=== PATIENT | female | born 1950 ===

== ENCOUNTER 2021-05-26 06:20 | Observation (INO) ==
--- NOTE | 2021-05-21 12:58 | Anesthesiology Consultation ---
Date of Service May 21, 2021 Assessment & Plan (1) Encounter for pre-operative examination: Chart Review Chart Review: Acceptable Risk for Surgery (pending preop Covid testing results ) and Patient NOT seen in Pre Admission Testing Per nursing assessment 05/21/2021, patient resides in [facility]. No other travel except local. No known Covid positive exposures or Covid related symptoms. Wears mask in public. No known Covid infection in the past 90 days. Pt is fully vaccinated for Covid. Preop Covid testing scheduled 05/24/21= will await results. History Surgery Operation Date: 05/26/21 08:50 Proposed Procedures p Right Total Knee Arthroplasty - Barrera Bray MD Height/Weight Height: 5 ft 1 in Weight: 111.13 kg Allergies Allergy/AdvReac Type Severity Reaction Status Date / Time levofloxacin [From Levaquin] Allergy Mild Rash Verified 05/21/21 11:57 Sulfa (Sulfonamide Allergy Mild Rash Verified 05/21/21 11:57 Antibiotics) amoxicillin [From Augmentin] AdvReac Unknown NAUSEA AND Verified 05/21/21 12:01 VOMITING clavulanic acid AdvReac Unknown NAUSEA AND Verified 05/21/21 12:01 [From Augmentin] VOMITING Medications Home Medications Medication Instructions Recorded Confirmed Last Taken cholecalciferol (vitamin D3) 25 50 mcg PO QAM 10/26/20 05/21/21 Unknown mcg (1,000 unit) tablet (Vitamin D3) fexofenadine 180 mg tablet 180 mg PO DAILY PRN 10/26/20 05/21/21 Unknown ibuprofen 200 mg tablet 400 mg PO Q6H PRN 10/26/20 05/21/21 Unknown pravastatin 40 mg tablet 40 mg PO QAM 10/26/20 05/21/21 Unknown psyllium seed (with dextrose) oral 3.4 g PO QAM 10/26/20 05/21/21 Unknown powder (fiber) aspirin 81 mg tablet,delayed 81 mg PO HS 10/29/20 05/21/21 Unknown release (Adult Aspirin Regimen) amino acids 2 cap PO TID 01/13/21 05/21/21 Unknown cannabidiol 100 mg/mL oral solution 300 mg PO BID 01/13/21 05/21/21 Unknown acetaminophen 650 mg 1,300 mg PO Q8H 05/21/21 05/21/21 Unknown tablet,extended release Past Medical History Medical History Hepatitis A 2000- residing in [place] at the time- no issues at this time or residual issues with liver Hx of cardiac arrhythmia SVT- dx'ed at 16 years of age- controlled with Inderal until 2012- SVT did reoccur- s/p ablation- no recent issues since that time Hx of migraines Hx of squamous cell carcinoma ON FOREHEAD Hyperlipidemia IBS (irritable bowel syndrome) Stable- no recent issues Osteoarthritis Seasonal allergies Urinary urgency Past Family History Family History Grandmother (Maternal) Family history of diabetes mellitus Other No family history of adverse response to anesthesia Past Surgical History Surgical History History of appendectomy History of cardiac radiofrequency ablation FOR SVT 2012 AT [facility] History of dilatation and curettage History of tonsillectomy and adenoidectomy History of tooth extraction Social History Smoking Status: Never smoker Do You Dip or Chew Tobacco: No Hx Alcohol Use: No Hx Substance Use: No substance use type: does not use Substance Use Type Other:: CBD OIL Lab Results Anesthesia Preop Results Results Anesthesia Widget: WBC 7.91 K/uL (4.8-10.8) 04/16/21 Hgb 14.3 g/dL (12.0-16.0) 04/16/21 Hct 43.0 % (37-47) 04/16/21 Plt 374 K/uL (130-400) 04/16/21 Na 137 mmol/L (136-145) 04/16/21 K 4.1 mmol/L (3.5-5.1) 04/16/21 Cl 102 mmol/L (98-107) 04/16/21 CO2 27 mmol/L (21-32) 04/16/21 BUN 17 mg/dl (6-23) 04/16/21 Creat 0.64 mg/dl (0.6-1.2) 04/16/21 Glucose Level 71 mg/dl (70-99(Fasting)) 04/16/21 PT 10.8 Seconds (9.0-12.0) 04/16/21 INR 1.0 (0.9-1.1) 04/16/21 Blood Type O Negative 04/16/21 Antibody Screen NEGATIVE 04/16/21 Testing Electrocardiogram Date: 10/29/20 Findings: + NSR @ (86bpm) Normal EKG per cardio Chest X-Ray Date: 10/29/20 Findings: + NAD 2.5 cm opacity of the medial right lung apex is likely secondary to osteophytic spurring.
--- NOTE | 2021-05-22 09:40 | History and Physical Report ---
CHIEF COMPLAINT: Right knee pain and discomfort. 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 She has a several-year history of increasing right knee pain and disc omfort. She describes it has gotten worse over the past year and a half. She has been treated by Dr Hassan ____ chao in the [place] area. She has been through extensive conservative care including steroi d shots and viscosupplementation, as well as oral medicines. She went through a several-month period of therapy, which helped strengthen her leg a little bit, but did not help much with the pain. She has been using a cane for the past year or so due to the pain. Pain is mostly medial. She would lik e to have her knee fixed. She was scheduled previously, but canceled due to the COVID epidemic. PAST MEDICAL HISTORY: Significant for, 1. SVT, status post ablation in 2012, now in sinus rhythm. 2. Elevated cholesterol. 3. Squamous cell skin cancer. 4. Hepatitis. 5. Obesity with a BMI of 48. PAST SURGICAL HISTORY: Includes, 1. T and A. 2. D and C. 3. Appendectomy. 4. Cardiac ablation. ALLERGIES: SULFA AND LEVAQUIN. CURRENT MEDICATIONS: Include, 1. Rosuvastatin. 2. Ibuprofen. 3. Tylenol. 4. Fiber laxative. 5. Vitamin D. 6. Baby aspirin. 7. CBD oil. 8. Raisa. SOCIAL HISTORY: A 70-year-old female. She is from [place]. She is a retired RN. Rare alcohol in take. Does not smoke. FAMILY HISTORY: Significant for diabetes, heart disease and cancer. REVIEW OF SYSTEMS: Negative for diabetes. No chest pain or shortness of breath. No history of DVT or PE. She did have SVT in the past, but underwent cardioversion and now in sinus rhythm. PHYSICAL EXAMINATION: GENERAL: Shows a pleasant middle-aged female. She is moderately obese. HEENT: Benign. NECK: Supple. No lymphadenopathy. LUNGS: Clear to auscultation. HEART: Has a regular rate and rhythm. ABDOMEN: Soft, nontender, nondistended. EXTREMITIES: Grossly neurovascularly intact except as follows: Examination of the right knee reveal s the patient walks with the use of a cane. She does have moderate to large soft tissue envelope. S he has got varus alignment to her knee. She is tender over the medial joint line. Small knee effusi on. Range of motion is 5-120. No instability. No pain with hip motion. X-RAYS: X-rays from previously reviewed. It shows advanced right knee degenerative joint disease. She has got complete loss of her medial joint space. She has subchondral sclerosis. She has got ost eophytes primarily medially. 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 She has failed conservative measures. I t has gotten to the point where she needs to use a cane to get around. PLAN: We discussed treatment. She would like to proceed with right knee replacement. The risks and benefits of the right total knee replacement were explained to the patient to include, but not limit ed to, DVT, PE, , infection, neurological injury, vascular injury, bleeding problem, pain, limit ed range of motion, stiffness, failure to relieve her symptoms, incomplete relief of symptoms. The p atient understands and desires to proceed. Informed consent was obtained. Job ID: [id number]
[~2021-05-26 06:20] MED LIST: ACETAMINOPHEN 500 MG TAB PO SCH; BUPIVACAINE LIPOSOME/PF 266 MG, BUPIVACAINE/EPINEPHRINE 50 ML, SODIUM CHLORIDE 0.9% 30 ... INFIL SCH; FAMOTIDINE 20 MG TAB PO SCH; GABAPENTIN 300 MG CAP PO SCH; LR 500ML BOLUS, THEN 15ML/HR IV SCH; LR 60ML/HR IV SCH; METOCLOPRAMIDE HCL 10 MG TABLET PO SCH; TRANEXAMIC ACID 1,000 MG **IV Intra-op IV SCH; ceFAZolin 2000MG 2,000 MG/15 ML SYR IV SCH
[2021-05-26] MEDS ORDERED: ROPIVACAINE 0.5% 5 MG/ML 30 ML VIAL ONE (06:36)
[2021-05-26] MEDS ORDERED: BUPIVACAINE 0.5 % 5 MG/1 ML PF 10ML VIAL ONE (06:36)
--- NOTE | 2021-05-26 06:56 | History & Physical Bridge Note ---
Date of Service May 26, 2021 History & Physical Bridge Note I have examined the patient, reviewed the History & Physical and in the interval since the performance of the History & Physical I have noted the following changes of clinical significance: no changes noted
[2021-05-26] MEDS ORDERED: PROMETHAZINE HCL 12.5 MG in SODIUM CHLORIDE 0.9% 50 ML IV PRN (08:14)
[2021-05-26] MEDS ORDERED: ATROPINE SULFATE 0.1 MG/ML 10ML SYR IV PRN (08:14)
[2021-05-26] MEDS ORDERED: ONDANSETRON INJ 2 MG/ML 2 ML VIAL IV PRN ×2 (08:14→11:44)
[2021-05-26] MEDS ORDERED: HYDROmorphone INJ 2 MG/ML SYR/VIAL IV PRN (08:14)
[2021-05-26] MEDS ORDERED: fentaNYL citrate 100 MCG/2 ML VIAL IV PRN (08:14)
[2021-05-26] MEDS ORDERED: ePHEDrine sulfate 50 MG/ML AMP IV PRN (08:14)
[2021-05-26] MEDS ORDERED: MIDAZOLAM HCL 1 MG/ML 2ML VIAL ONE ×2 (08:16)
[2021-05-26] MEDS ORDERED: BUPIVACAINE LIPOSOME 1.3% 266 MG/20 ML VIAL ONE (08:36)
[2021-05-26] MEDS ORDERED: BUPIVACAINE/EPINEPHRINE 0.25% 1:200,000 30 ML VIAL ONE (08:37)
[2021-05-26] MEDS ORDERED: SODIUM CHLORIDE 0.9% PF 50 ML VIAL ONE (08:37)
[2021-05-26] MEDS ORDERED: PROPOFOL IV EMULSION 10 MG/ML 20 ML VIAL IV ONE ×2 (09:33→10:09)
[2021-05-26] MEDS ORDERED: PHENYLEPHRINE HCL 10 MG/ML VIAL ONE (09:33)
[2021-05-26] MEDS ORDERED: LIDOCAINE 2% 2 ML VIAL/AMP(20MG/ML) INFIL ONE (09:33)
[2021-05-26] MEDS ORDERED: ePHEDrine sulfate 50 MG/ML AMP ONE (09:51)
[2021-05-26] MEDS ORDERED: SODIUM CHLORIDE 0.9% INJ 10 ML VIAL ONE (10:10)
[2021-05-26] MEDS ORDERED: KETOROLAC 30 MG/ML VIAL ONE (10:28)
--- NOTE | 2021-05-26 10:57 | Operative Report ---
PG Post Operative Report Pre & Post Diagnosis Operation Date: 05/26/21 08:50 Pre-Op Diagnosis: Right Knee Osteoarthritis Post-Op Diagnosis: Right Knee Osteoarthritis I identified the patient and participated in the time-out.: Yes Procedure Operation Date: 05/26/21 08:50 Actual Procedures p Right Total Knee Arthroplasty(Right) - Barrera Bray MD Surgeon Barrera Bray MD Fire Control Technician B Justen Jarrell PA-C Estimated Blood Loss 50 Findings Consistent with Post-Op Diagnosis Operative findings were advanced right knee DJD. She had extensive grade 4 [id number] disease the medial and patellofemoral compartments. She had a very large soft tissue envelope. Moderate sized knee joint effusion. 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 She failed conservative measures. X-rays reveal advanced right knee DJD. She elected to proceed with surgical treatment. The patient is morbidly obese with a BMI of 48. This did make the surgery significantly more difficult and took about 50% more time than the usual to accommodate the soft tissue envelope. Description of Procedure Operative implants consist of: 1 Biomet Vanguard size 62.5 right posterior stabilized femoral component. 2. Biomet size 67 tibial tray. 3. 12 mm posterior stabilized polyethylene insert. 4. 31 x 8 all polypatella. The patient was taken to the operating, identified, placed on the operating table supine position protectors were properly padded. IV antibiotics tried by anesthesia team. A spinal anesthetic and abductor canal block had provided in the holding area. Nino catheter was placed in a sterile fashion. A right thigh turn was then placed in the right lower extremities and prepped and draped in usual sterile fashion. The right leg was elevated exsanguinated with use of an Esmarch in terms playset 350 mmHg. An anterior approach to the right knee was then performed to longitudinal incision centered over the patella. Sharp dissection was carried through subcutaneous this down the extensor mechanism. A medial parapatellar arthrotomy incision was made. Some subperiosteal dissection was carried out medially. The fat pad was resected beneath patella tendon. Lateral patellofemoral ligament was released. Patella subluxated laterally and the knee was flexed. The osteophytes taken off distal femur. The ACL and PCL were then released from the distal femur the tibia subluxated anteriorly. The external treatment line jig was then placed in the interface of the tibia and adjusted 14 mm medially. Proximal tibial cut was made remove about 2 to 3 mm of bone from the medial side. Tibia was then sized to a size 67. We did try to maximize her coverage due to her size. Attention drawn the femur. The distal femur stem with a sharp drop with intramedullary canal was suction. A right 5 degree valgus cutting guide was placed. Distal femoral cutting block was pinned in place. Distal femoral cut was made to take an additional 3 mm bone off distal femur. Femur was then sized to a size 62.5. The AP cutting block was pinned parallel to the epicondylar axis which was 3 degrees of external rotation. The anterior cut, anterior chamfer, posterior cut, posterior chamfer cuts were made. The box cutting guide was placed in just slight lateral box cut was made. The knee was flexed. The remnants of the medial lateral menisci were excised. The osteophyte taken off the posterior aspect of the femur. A trial femoral component was placed. The tibial tray was pinned in maximum external rotation and the drill and stem punch were used to create defect in proximal tibia for the tibial tray. The knee was then trialed and the 12 mm insert fit most appropriately. Attention was then drawn to the patella. Patella was cleaned of all soft tissues. Patella thickness measured 22 mm in thickness. I was unable to alejandra the patella due to her large soft tissue envelope. Therefore we had to cut this from medial to lateral with it just tilted to the side. We cut it down to 13 mm. Was sized to a size 31 patella. The lug holes were drilled. 31 patella. The lateral osteophyte is moved. Patella button was placed. Knee was taken through range of motion patella tracked nicely with no thumbs test. Attention drawn to place the permanent components. All trial components were removed. Bone plug was placed in the distal femur limit blood loss. Double batch [place] G cement was mixed. [employer] size 62.5 right posterior stabilized femoral component, size 67 tibial tray, 12 mm posterior stabilized polyethylene insert, 31 x 8 all polypatella then cemented in place. The knee was brought out into full extension total cement hardened. Final cement check was then performed. Pericapsular tissues were injected with total 100 cc of combination of 20 cc of Exparel, 30 cc normal saline, 50 cc of quarter percent Marcaine with epinephrine. Patient did receive 1 g tranexamic acid but the tourniquet was let down for final turn time 60 minutes. Hemostasis assured use electrocautery. Extensor mechanism then closed with combination 1 PDS suture #1 Vicryl suture in [id number] fashion with extensor mechanism checked found to be intact with subcutaneous tissue then ami sed with 2 Dexon suture in a buried interrupted fashion. Skin was closed skin jack. The leg was then cleaned and dried a sterile dressing was Xeroform, 4 x 4's, sterile cast padding, Onur bandage were applied. Patient then transferred to the recovery room in stable condition. Patient tolerated the procedure well and there were no complications. Justen Jarrell, my physician gift shop assistant, was present for the entire procedure. His assistance was essential and required for appropriate patient positioning, prepping and draping, surgical exposure, performing the technical details of the operation, placement the implants, closure of the wound, and placement of the sterile bandage. I attest to the content of the Intraoperative Record and any orders documented therein. Any exceptions are noted below.
--- NOTE | 2021-05-26 11:28 | Anesthesiology Progress Note ---
Date of Service May 26, 2021 Anesthesia Post Procedure Vital Signs Vital Signs: Temp Pulse Pulse Resp BP Pulse Ox 05/26/21 11:15 36.4 C L 81 20 136/68 98 05/26/21 11:05 79 15 148/95 H 99 05/26/21 10:55 82 15 153/67 H 99 05/26/21 10:45 36.0 C L 88 16 134/68 100 05/26/21 06:52 36.9 C 112 H 22 186/98 H 96 Pain Intensity Right Knee: Pain Intensity: 2 Transfer of Care Handoff Completed per policy Notes Mental Status: alert / awake / arousable and participated in evaluation Patient Amnestic to Procedure: Yes Nausea / Vomiting: adequately controlled Pain: adequately controlled Airway Patency, RR, SpO2: stable & adequate BP & HR: stable & adequate Hydration State: stable & adequate Neuraxial Anesthesia: was administered and sensory block is resolving Anesthetic Complications: no major complications apparent
--- NOTE | 2021-05-26 11:42 | XRay Report ---
RIGHT KNEE 2 VIEWS History: Right total knee arthroplasty. Degenerative arthritis. Postop. FINDINGS: The patient is status post a right total knee arthroplasty. The hardware is intact. No frac ture or dislocation. Skin jack are in place. IMPRESSION: Right total knee arthroplasty. No evidence for hardware complication. ACT 112: Negative or not required by law. Electronically signed by: Bridger Wyman M.D. 05/26/2021 11:40 AM
[2021-05-26] MEDS ORDERED: HYDROmorphone INJ 0.5 MG/0.5 ML SYR IV PRN (11:44)
[2021-05-26] MEDS ORDERED: FEXOFENADINE HCL 180 MG TAB PO PRN (11:44)
[2021-05-26] MEDS ORDERED: ALUMINUM/MAGNESIUM SUSP 30 ML UDC PO PRN (11:44)
[2021-05-26] MEDS ORDERED: NALOXONE HCL 0.4 MG/1 ML VIAL/CARP IV PRN (11:44)
[2021-05-26] MEDS ORDERED: MAGNESIUM HYDROXIDE SUSP 30 ML UDC PO PRN (11:44)
[2021-05-26] MEDS ORDERED: bisacodyL 10 MG SUPP PR PRN (11:44)
[2021-05-26] MEDS ORDERED: METOCLOPRAMIDE HCL INJ 5 MG/ML 2 ML VIAL IV PRN (11:44)
[2021-05-26] MEDS: SODIUM CHLORIDE 0.9% 1000ML 1,000 ML IV SCH ×2 (14:00→19:52)
[2021-05-26] MEDS ORDERED: NON-FORMULARY MEDICATION (Amino Acids Capsule) PO SCH (14:00)
[2021-05-26] MEDS: ACETAMINOPHEN 500 MG TAB PO SCH ×2 (14:02→21:02)
[2021-05-26] MEDS: KETOROLAC TROMETHAMINE 15 MG/ML VIAL IV SCH ×2 (14:07→20:57)
[2021-05-26] MEDS ORDERED: TRANEXAMIC ACID / 0.7% NACL 1,000 MG/100 ML BAG IV SCH (17:00)
[2021-05-26] MEDS: ceFAZolin 2000MG 2,000 MG/15 ML SYR IV SCH (17:33)
[2021-05-26] MEDS: ASCORBIC ACID 500 MG TAB PO SCH (17:33)
[2021-05-26] MEDS: [UNRECOGNIZED DRUG - OTHER] PO SCH (19:40)
[2021-05-26] MEDS: CANNABIDIOL PO SCH (19:40)
[2021-05-26] MEDS: ASPIRIN 81 MG ECTAB PO SCH (20:58)
[2021-05-26] MEDS: DOCUSATE SODIUM 100 MG CAP PO SCH (20:59)
[2021-05-26] MEDS ORDERED: CANNABIDIOL TOP SCH (21:00)
[2021-05-26] MEDS ORDERED: SENNA 8.6 MG TAB PO SCH (21:00)
[2021-05-26] MEDS ORDERED: [UNRECOGNIZED DRUG - OTHER] TOP SCH (21:00)
[2021-05-26] MEDS: TAPENTADOL HCL ER 50 MG TABCR PO SCH (21:02)
[2021-05-27] MEDS: KETOROLAC TROMETHAMINE 15 MG/ML VIAL IV SCH ×3 (01:58→13:40)
[2021-05-27] MEDS: ceFAZolin 2000MG 2,000 MG/15 ML SYR IV SCH (02:04)
[2021-05-27] MEDS: ACETAMINOPHEN 500 MG TAB PO SCH ×2 (05:46→13:39)
[2021-05-27] MEDS ORDERED: dexAMETHasone 10 MG in SYRINGE 0 ML IV SCH (08:00)
[2021-05-27 08:04] LABS: Hematocrit (blood only) 36.7 % (37-47); Hemoglobin 12.2 g/dL (12.0-16.0); Mean Corpuscular Hemoglobin 31.7 pg (25-34); Mean Corpuscular Hgb Conc 33.2 g/dL (32-36); Mean Corpuscular Volume 95.3 fL (80-100); Mean Platelet Volume 9.2 fL (7.4-10.4); Platelet Count 286 K/uL (130-400); RDW Standard Deviation 48.6 fL (36.4-46.3); Red Blood Count 3.85 M/uL (4.2-5.4); White Blood Count 8.27 K/uL (4.8-10.8)
[2021-05-27 08:28] LABS: Calcium 8.6 mg/dl (8.5-10.1); Creatinine Clr Calc Pharmacy 100.4 ml/min; Est GFR (African American) 106.3 ml/min; Est GFR (Non-African American) 91.7 ml/min; Potassium 4.1 mmol/L (3.5-5.1)
[2021-05-27] MEDS ORDERED: MULTIVITAMIN TAB PO SCH (09:00)
[2021-05-27] MEDS ORDERED: PSYLLIUM 58.6% POWDER PACKET PO SCH (09:00)
[2021-05-27] MEDS ORDERED: PRAVASTATIN SOD 40 MG TAB PO SCH (09:00)
[2021-05-27] MEDS ORDERED: CHOLECALCIFEROL 1,000 UNITS 25 MCG TAB PO SCH (09:00)
[2021-05-27] MEDS ORDERED: DOCUSATE SODIUM/SENNA 50/8.6MG TAB PO SCH (09:00)
--- NOTE | 2021-05-27 09:36 | Progress Notes ---
DATE OF SERVICE: 05/27/2021. SUBJECTIVE: A 70-year-old female postoperative day 1 from right knee replacement, doing pretty well. Really not having much pain. No chest pain or shortness of breath. Not feeling dizzy or lighthead ed. Hoping to go home today. OBJECTIVE: VITAL SIGNS: Temperature 37.0. Vital signs are stable. PHYSICAL EXAMINATION: GENERAL: Shows a pleasant middle-aged female. She is sitting up in bed and looks pretty comfortable . LUNGS: Clear to auscultation. HEART: Has a regular rate and rhythm. ABDOMEN: Soft, nontender, nondistended. EXTREMITIES: Grossly neurovascularly intact except as follows: Examination of the right leg reveals the dressing to be clean, dry and intact. She can dorsiflex and plantarflex her foot appropriately. She has got a good straight leg raise. LABORATORY DATA: Labs are pending. ASSESSMENT: A 70-year-old white female postoperative day 1 from a right knee replacement, doing pret ty well. Pain is controlled. She is neurologically intact. PLAN: 1. DVT prophylaxis includes thigh-high TEDs, SCDs, and aspirin twice a day. 2. PT, OT, weightbear as tolerated. Right total knee protocol. 3. Pain control, doing well with current pain regimen. 4. Disposition: Plan to discharge to home with some home health hopefully later today if therapy go es okay. Job ID: [id number]
[2021-05-27] MEDS: DOCUSATE SODIUM 100 MG CAP PO SCH (09:42)
[2021-05-27] MEDS: CANNABIDIOL PO SCH (09:44)
[2021-05-27] MEDS: [UNRECOGNIZED DRUG - OTHER] PO SCH (09:44)
[2021-05-27] MEDS: ASCORBIC ACID 500 MG TAB PO SCH (09:44)
[2021-05-27] MEDS: oxyCODONE HCL IR 5 MG TAB (IMMEDIATE RELEASE) PO PRN ×2 (09:45→16:00)
[2021-05-27] MEDS: TAPENTADOL HCL ER 50 MG TABCR PO SCH (09:55)
[2021-05-27] MEDS: ASPIRIN 81 MG ECTAB PO SCH (10:25)
--- NOTE | 2021-06-01 16:26 | Discharge Summary ---
Date of Service June 01, 2021 Discharge Data Procedures Performed Operation Date: 05/26/21 08:50 Actual Procedures p Right Total Knee Arthroplasty(Right) - Barrera Bray MD Hospital Course (1) Status post total right knee replacement: This patient is a 70 year old patient admitted on 05/26/21 and underwent total knee arthroplasty. She tolerated the procedure well and there were no complications. Transferred to the PACU post op and later to the orthopedic floor for further care. She was given ancef for antibiotic prophylaxis. She was also given MOE stockings, SCDs, and aspirin for DVT prophylaxis. Hemoglobin, hematocrit, and vital signs were monitored during her hospital stay and remained stable. Did not require any blood transfusions. There were no complications d uring her hospital stay. By post op day #1 the patient was tolerating a regular diet, pain was reasonably controlled with oral pain medicine, and she was participating in physical therapy. On post op day #1 the patient was discharged home and set up with home health care. She was given printed discharge instructions including prescriptions for extra strength tylenol, aspirin, zofran, toradol, and oxycodone. Continue physical therapy, weight bearing as tolerated. Continue MOE stockings. Follow up approximately 2 weeks post op or sooner if there are problems or concerns. Coding Level of Care Code None Diagnoses Status post total right knee replacement Z96.651
== END 2021-05-27 17:11 | disposition home health service (06) ==
LOC: 3E 06:20 → ASU 06:20
DX: Z79.899 Other long term (current) drug therapy; Z88.8 Allergy status to other drugs, medicaments and biological substances; Z88.2 Allergy status to sulfonamides; E66.01 Morbid (severe) obesity due to excess calories; Z68.42 Body mass index [BMI] 45.0-49.9, adult; Z79.82 Long term (current) use of aspirin; M17.11 Unilateral primary osteoarthritis, right knee